=== PATIENT | male | born 1955 | race Hispanic/Latino ===

== ENCOUNTER 2020-12-26 20:32 | Inpatient (IN) | payer MEDICARE ==
[~2020-12-26] VITALS: Ht 188 cm; Wt 89.9 kg
[2020-12-26] MEDS ORDERED: ACETAMINOPHEN 500 MG TABLET ONE (22:28)
[2020-12-26] MEDS ORDERED: 0.9%NACL 1000ML 1,000 ML IV ONE ×2 (22:29→22:30)
[2020-12-26] MEDS ORDERED: ACETAMINOPHEN 500 MG TABLET PO ONE (22:30)
[2020-12-26 22:47] VITALS: BP 100/64
[2020-12-26] MEDS ORDERED: INSULIN HUMULIN R 100 UNIT/ML 3ML ONE (22:47)
[2020-12-26 22:48] LABS: BASOPHILS % (AUTO) 0.3 % (0.0-5.0); EOSINOPHILS % (AUTO) 0.1 % (0.0-8.0); HEMATOCRIT 41.1 % (42-54); LYMPHOCYTES % (AUTO) 11.2 % (21.0-51.0); MEAN CORPUSCULAR HEMOGLOBIN 29.2 pg (27.0-33.0); MEAN CORPUSCULAR HGB CONC 33.3 g/dL (32.0-36.0); MEAN CORPUSCULAR VOLUME 87.6 fL (79-99); MONOCYTES % (AUTO) 2.2 % (3.0-13.0); NEUTROPHILS % (AUTO) 83.7 % (40.0-77.0); RED BLOOD CELL COUNT(AUTO) 4.69 MIL/uL (4.50-6.20); WHITE BLOOD COUNT (AUTO) 6.8 K/uL (4.8-10.8)
[2020-12-26 22:52] LABS: PLATELET COUNT (AUTO) 31 K/uL (130-400)
[2020-12-26] MEDS ORDERED: INSULIN HUMULIN R 100 UNIT/ML 3ML SQ ONE (23:00)
[2020-12-26] MEDS ORDERED: CEFTRIAXONE 1G VIAL IVP ONE (23:00)
[2020-12-26] MEDS ORDERED: AZITHROMYCIN 250 MG TABLET PO ONE ×2 (23:00→23:56)
[2020-12-26 23:02] LABS: ALANINE AMINOTRANSFERASE 100 U/L (12-78); ALBUMIN 2.3 g/dL (3.5-5.0); ASPARTATE AMINOTRANSFERASE 257 U/L (10-37); BILIRUBIN,TOTAL 1.2 mg/dL (0.2-1.0); CARBON DIOXIDE 22 mmol/L (21-32); CREATININE 3.5 mg/dL (0.5-1.5); GLOMERULAR FILTR. RATE CALC 19 mL/min (>60); POTASSIUM 5.6 mmol/L (3.5-5.1); SODIUM SERUM 124 mmol/L (136-145); TOTAL PROTEIN, SERUM 7.7 g/dL (6.0-8.3); UREA NITROGEN, BLOOD 58 mg/dL (7-18)
[2020-12-26 23:07] LABS: CHLORIDE 87 mmol/L (101-111); GLUCOSE,RANDOM 464 mg/dL (70-105)
[2020-12-26 23:17] LABS: ABG BASE EXCESS -4.6 mmol/L (-2.0-3.0); ABG OXYGEN SATURATION 93.6 % (95.0-99.0); ABG PCO2 28 mmHg (35-48)
[2020-12-26 23:34] LABS: B-TYPE NATRIURETIC PEPTIDE 300 pg/mL (0-100)
[2020-12-26 23:42] LABS: AMMONIA < 3 umol/L (11-32)
[2020-12-26] MEDS ORDERED: CEFTRIAXONE 1G VIAL ONE (23:55)
[2020-12-27] VITALS (15 sets, daily range): BP systolic 75–110; BP diastolic 32–66
[2020-12-27] MEDS ORDERED: 0.9%NACL 1000ML 1,000 ML IV STA (02:25)
[2020-12-27] MEDS ORDERED: NOREPINEPHRINE 4MG/NS 250ML 250 ML IV SCH (03:30)
[2020-12-27] MEDS ORDERED: SODIUM BICARB 8.4% 50ML SYRINGE IVP STA (04:06)
[2020-12-27] MEDS ORDERED: IPRATROPIUM/ALBUTEROL SULFATE 3 ML SOLUTION IH PRN (06:00)
[2020-12-27] MEDS: 0.9%NACL 1000ML 1,000 ML IV SCH ×5 (06:00→20:16)
[2020-12-27] MEDS ORDERED: ACETAMINOPHEN 325 MG TAB PO PRN (06:30)
[2020-12-27] MEDS ORDERED: NITROGLYCERIN 0.4 MG SL TAB SL PRN (06:30)
[2020-12-27] MEDS ORDERED: LACTULOSE 20 GM/30 ML UDCUP PO PRN (06:30)
[2020-12-27] MEDS ORDERED: ONDANSETRON 4MG INJ IV PRN (06:30)
[2020-12-27] MEDS ORDERED: GUAIFENESIN-DM 200/20 MG 10 ML PO PRN (06:30)
[2020-12-27] MEDS ORDERED: MAG/ALUM/SIMETH 30 ML UDCUP PO PRN (06:30)
[2020-12-27 07:06] LABS: HEMATOCRIT 33.5 % (42-54); MEAN CORPUSCULAR HEMOGLOBIN 29.4 pg (27.0-33.0); MEAN CORPUSCULAR VOLUME 86.3 fL (79-99); PLATELET COUNT (AUTO) 32 K/uL (130-400); RED BLOOD CELL COUNT(AUTO) 3.88 MIL/uL (4.50-6.20); RED CELL DISTRIBUTION WIDTH 14.2 % (11.0-15.5); WHITE BLOOD COUNT (AUTO) 5.9 K/uL (4.8-10.8)
[2020-12-27 07:23] LABS: ALBUMIN 1.7 g/dL (3.5-5.0); BILIRUBIN,TOTAL 0.7 mg/dL (0.2-1.0); CREATININE 3.1 mg/dL (0.5-1.5); MAGNESIUM 2.3 mg/dL (1.80-2.40); PHOSPHORUS 3.5 mg/dL (2.5-4.9); POTASSIUM 4.1 mmol/L (3.5-5.1); TOTAL PROTEIN, SERUM 5.7 g/dL (6.0-8.3)
[2020-12-27 07:37] LABS: B-TYPE NATRIURETIC PEPTIDE 233 pg/mL (0-100)
[2020-12-27 07:40] LABS: LYMPHOCYTES % (MANUAL) 4 % (22-44); MAN.DIFF COMMENT-IMPRESSION MANUAL DIFFERENTIAL; MONOCYTES % (MANUAL) 1 % (2-9); PLATELET MORPHOLOGY COMMENT MARKED DECREASE; SEGMENTED NEUTROPHILS % 95 % (40-70)
[2020-12-27] MEDS: 0.9% NACL 250ML IVPB SCH (09:00)
[2020-12-27] MEDS ORDERED: ENOXAPARIN SODIUM 30 MG/0.3 ML SQ SCH (09:00)
[2020-12-27] MEDS ORDERED: MIDODRINE HCL 5 MG TABLET PO SCH (09:30)
[2020-12-27] MEDS ORDERED: 0.9%NACL 50ML 50 ML IV ONE ×2 (09:50→18:49)
[2020-12-27] MEDS: ZOSYN 3.375GM +NS 50ML IV SCH ×2 (10:04→18:46)
[2020-12-27] MEDS: AZITHROMYCIN 500MG+NS 250ML IV SCH (10:43)
[2020-12-27 12:59] LABS: INR 1.42 (0.85-1.15)
[2020-12-27 13:00] LABS: PARTIAL THROMBOPLASTIN TIME 53.3 SEC (26.3-35.5)
[2020-12-27] MEDS: INSULIN R PO SS1 SQ SCH ×3 (13:37→21:00)
[2020-12-27] MEDS: MIDODRINE HCL 5 MG TABLET PO SCH ×2 (13:41→20:06)
[2020-12-27] MEDS ORDERED: AMOX-429 PO (15:48)
[2020-12-27] MEDS ORDERED: ICOS1CAP PO (15:48)
[2020-12-27] MEDS ORDERED: ROSU20TA31 PO (15:48)
[2020-12-27] MEDS ORDERED: METO25TA6 PO (15:48)
[2020-12-27] MEDS ORDERED: ROPI1TAB13 PO (15:48)
[2020-12-27] MEDS ORDERED: PIOG45TA64 PO (15:48)
[2020-12-27] MEDS ORDERED: EMPA25TA PO (15:48)
[2020-12-27] MEDS ORDERED: METF-446 PO (15:48)
[2020-12-27] MEDS ORDERED: SACU1TAB PO (15:48)
[2020-12-27] MEDS ORDERED: GABA-529 PO (15:48)
[2020-12-27] MEDS ORDERED: MONT10TA32 PO (15:48)
[2020-12-27] MEDS ORDERED: SERT-439 PO (15:48)
[2020-12-27] MEDS ORDERED: LEVO100C4 PO (15:48)
[2020-12-27 19:16] LABS: ABG BASE EXCESS -2.8 mmol/L (-2.0-3.0); ABG HCO3 21.2 mmol/L (21.0-28.0); ABG OXYGEN SATURATION 94.4 % (95.0-99.0); ABG PCO2 35 mmHg (35-48)
[2020-12-27] MEDS: VASOPRESSIN 40 UNITS in 0.9%NACL 50ML 40 ML IV SCH (20:06)
[2020-12-27] MEDS ORDERED: SODIUM BICARB 8.4% 50ML SYRING 150 MEQ in DEXTROSE 5%-WATER 1,000 ML IVP STA (20:58)
[2020-12-27] MEDS ORDERED: VANCOMYCIN 1G VIAL IVPB SCH (22:00)
[2020-12-27] MEDS ORDERED: VANCOMYCIN PROTOCOL PER PHARMACY IV SCH (22:00)
[2020-12-27] MEDS ORDERED: VANCOMYCIN KIT 250 ML IV ONE (22:30)
[2020-12-28] VITALS (24 sets, daily range): BP systolic 80–117; BP diastolic 49–70
[2020-12-28] MEDS ORDERED: CEFTRIAXONE 1G VIAL IVP SCH
[2020-12-28] MEDS ORDERED: CEFTRIAXONE 1G VIAL ONE (00:12)
[2020-12-28] MEDS: CEFTRIAXONE 1G VIAL IVP SCH (00:30)
[2020-12-28] MEDS: ZOSYN 3.375GM +NS 50ML IV SCH ×3 (00:54→23:59)
[2020-12-28] MEDS ORDERED: 0.9%NACL 50ML 50 ML IV ONE ×2 (01:18→09:06)
[2020-12-28 04:43] LABS: APPEARANCE,URINE Turbid (CLEAR); BILIRUBIN,URINE Small (NEGATIVE); COLOR,URINE Dark Yellow (YELLOW); GLUCOSE, URINE (UA) >=1000 mg/dL (NEGATIVE); KETONES,URINE Trace mg/dL (NEGATIVE); LEUKOCYTE ESTERASE ,URINE Negative (NEGATIVE); NITRATE,URINE Negative (NEGATIVE); OCCULT BLOOD,URINE Nonhemolyzed Trace (NEGATIVE); PROTEIN,URINE POS 1+ mg/dL (NEGATIVE)
[2020-12-28 04:50] LABS: AMPHET/METH SCREEN,URINE NEGATIVE (NEGATIVE); BARBITURATE SCREEN, URINE NEGATIVE (NEGATIVE); BENZODIAZEPINES SCREEN,URINE NEGATIVE (NEGATIVE); CANNABINOID SCREEN,URINE NEGATIVE (NEGATIVE); COCAINE SCREEN,URINE NEGATIVE (NEGATIVE); CREATININE,URINE RANDOM 119 mg/dL (30-135); OPIATE SCREEN,URINE NEGATIVE (NEGATIVE); PHENCYCLIDINE SCREEN,URINE NEGATIVE (NEGATIVE); SODIUM,URINE RANDOM < 14 mmol/l (40-220)
[2020-12-28 04:51] LABS: AMORPHOUS SEDIMENT,UR Rare /LPF (None Seen); BACTERIA,URINE None Seen /HPF (None Seen); RBC,URINE 0-1 /HPF (0-1); SQUAMOUS EPITHELIAL CELL,UR Few /HPF (0-2); WBC,URINE None Seen /HPF (0-1)
[2020-12-28 06:05] LABS: ABG BASE EXCESS -2.5 mmol/L (-2.0-3.0); ABG HCO3 21.6 mmol/L (21.0-28.0); ABG OXYGEN SATURATION 94.7 % (95.0-99.0); ABG PCO2 36 mmHg (35-48)
[2020-12-28] MEDS ORDERED: [UNRECOGNIZED DRUG - REMARK] MISC SCH (07:00)
[2020-12-28 08:04] LABS: BASOPHILS % (AUTO) 1.5 % (0.0-5.0); HEMATOCRIT 33.6 % (42-54); LYMPHOCYTES % (AUTO) 18.3 % (21.0-51.0); MEAN CORPUSCULAR HEMOGLOBIN 29.6 pg (27.0-33.0); MEAN CORPUSCULAR HGB CONC 34.2 g/dL (32.0-36.0); MEAN CORPUSCULAR VOLUME 86.6 fL (79-99); MONOCYTES % (AUTO) 2.9 % (3.0-13.0); NEUTROPHILS % (AUTO) 73.7 % (40.0-77.0); RED BLOOD CELL COUNT(AUTO) 3.88 MIL/uL (4.50-6.20); RED CELL DISTRIBUTION WIDTH 14.3 % (11.0-15.5); WHITE BLOOD COUNT (AUTO) 6.2 K/uL (4.8-10.8)
[2020-12-28 08:06] LABS: RETICULOCYTE % (AUTO) 0.5 % (0.42-2.23)
[2020-12-28 08:15] LABS: PLATELET COUNT (AUTO) 25 K/uL (130-400)
[2020-12-28 08:21] LABS: PHOSPHORUS 3.1 mg/dL (2.5-4.9); POTASSIUM 4.4 mmol/L (3.5-5.1)
[2020-12-28 08:54] LABS: % IRON SATURATION 53.7 % (30-44)
[2020-12-28 08:56] LABS: THYROID STIMULATING HORMONE 1.1 uIU/mL (0.36-3.74)
[2020-12-28] MEDS: LEVOTHYROXINE 100 MCG TABLET PO SCH (09:12)
[2020-12-28] MEDS: GABAPENTIN 100 MG CAPSULE PO SCH ×3 (09:12→21:51)
[2020-12-28] MEDS: MIDODRINE HCL 5 MG TABLET PO SCH ×3 (09:12→21:51)
[2020-12-28] MEDS: MONTELUKAST SODIUM 10 MG TAB PO SCH (09:13)
[2020-12-28] MEDS: SERTRALINE HCL 50 MG TABLET PO SCH (09:14)
[2020-12-28] MEDS: 0.9%NACL 1000ML 1,000 ML IV SCH ×2 (09:14→23:07)
[2020-12-28] MEDS: INSULIN R PO SS1 SQ SCH ×4 (09:26→21:51)
[2020-12-28] MEDS: AZITHROMYCIN 500MG+NS 250ML IV SCH (12:16)
[2020-12-28] MEDS: 0.9% NACL 250ML IVPB SCH (12:16)
[2020-12-28] MEDS ORDERED: VANCOMYCIN 1.5GM/NS 250ML IV ONE ×2 (14:30)
[2020-12-28] MEDS: ROPINIROLE HCL 1 MG TABLET PO SCH (21:51)
[2020-12-28] MEDS: ATORVASTATIN 40 MG TABLET PO SCH (21:51)
[2020-12-29] VITALS (41 sets, daily range): BP systolic 82–126; BP diastolic 41–67
[2020-12-29] MEDS: CEFTRIAXONE 1G VIAL IVP SCH (00:20)
[2020-12-29] MEDS: ZOSYN 3.375GM +NS 50ML IV SCH ×3 (00:21→18:06)
[2020-12-29] MEDS: VASOPRESSIN 40 UNITS in 0.9%NACL 50ML 40 ML IV SCH (01:10)
[2020-12-29] MEDS: 0.9%NACL 100ML 100 ML IV SCH ×2 (04:40→21:15)
[2020-12-29] MEDS: LEVOTHYROXINE 100 MCG TABLET PO SCH (06:48)
[2020-12-29] MEDS: VANCOMYCIN 500MG+NS 100ML IVPB IV SCH ×2 (06:50→21:15)
[2020-12-29 07:25] LABS: HEMATOCRIT 29.5 % (42-54); MEAN CORPUSCULAR HEMOGLOBIN 29.6 pg (27.0-33.0); MEAN CORPUSCULAR HGB CONC 34.2 g/dL (32.0-36.0); MEAN CORPUSCULAR VOLUME 86.5 fL (79-99); PLATELET COUNT (AUTO) 41 K/uL (130-400); RED BLOOD CELL COUNT(AUTO) 3.41 MIL/uL (4.50-6.20); RED CELL DISTRIBUTION WIDTH 14.4 % (11.0-15.5); WHITE BLOOD COUNT (AUTO) 5.7 K/uL (4.8-10.8)
[2020-12-29] MEDS: INSULIN R PO SS1 SQ SCH ×4 (07:30→21:35)
[2020-12-29 07:46] LABS: CREATININE 1.6 mg/dL (0.5-1.5); POTASSIUM 3.5 mmol/L (3.5-5.1)
[2020-12-29] MEDS ORDERED: 0.9%NACL 50ML 50 ML IV ONE (08:56)
[2020-12-29 09:00] LABS: EOSINOPHILS % (MANUAL) 2 % (1-6); LYMPHOCYTES % (MANUAL) 5 % (22-44); MAN.DIFF COMMENT-IMPRESSION MANUAL DIFFERENTIAL; MONOCYTES % (MANUAL) 5 % (2-9); PLATELET MORPHOLOGY COMMENT MARKED DECREASE; SEGMENTED NEUTROPHILS % 88 % (40-70)
[2020-12-29] MEDS: 0.9% NACL 250ML IVPB SCH (09:00)
[2020-12-29] MEDS: MIDODRINE HCL 5 MG TABLET PO SCH ×3 (09:05→21:15)
[2020-12-29] MEDS: SERTRALINE HCL 50 MG TABLET PO SCH (09:05)
[2020-12-29] MEDS: MONTELUKAST SODIUM 10 MG TAB PO SCH (09:05)
[2020-12-29] MEDS: GABAPENTIN 100 MG CAPSULE PO SCH ×3 (09:05→21:15)
[2020-12-29] MEDS ORDERED: ALBUMIN (HUMAN) 25% 100 ML IV PRN (10:00)
[2020-12-29] MEDS ORDERED: FUROSEMIDE 20MG VIAL IV SCH (10:00)
[2020-12-29] MEDS: ROPINIROLE HCL 1 MG TABLET PO SCH (21:14)
[2020-12-29] MEDS: SPIRONOLACTONE 25 MG TAB PO SCH (21:15)
[2020-12-29] MEDS: ATORVASTATIN 40 MG TABLET PO SCH (21:15)
[2020-12-30] VITALS (44 sets, daily range): BP systolic 77–111; BP diastolic 39–65
[2020-12-30] MEDS: ZOSYN 3.375GM +NS 50ML IV SCH ×3 (00:04→17:16)
[2020-12-30 06:01] LABS: BASOPHILS % (AUTO) 0.6 % (0.0-5.0); EOSINOPHILS % (AUTO) 0.4 % (0.0-8.0); HEMATOCRIT 29.1 % (42-54); LYMPHOCYTES % (AUTO) 28.3 % (21.0-51.0); MEAN CORPUSCULAR HEMOGLOBIN 29.3 pg (27.0-33.0); MEAN CORPUSCULAR HGB CONC 34.4 g/dL (32.0-36.0); MEAN CORPUSCULAR VOLUME 85.3 fL (79-99); MONOCYTES % (AUTO) 3.4 % (3.0-13.0); PLATELET COUNT (AUTO) 44 K/uL (130-400); RED BLOOD CELL COUNT(AUTO) 3.41 MIL/uL (4.50-6.20); RED CELL DISTRIBUTION WIDTH 14.2 % (11.0-15.5); WHITE BLOOD COUNT (AUTO) 5.3 K/uL (4.8-10.8)
[2020-12-30 06:28] LABS: CREATININE 1.6 mg/dL (0.5-1.5); PHOSPHORUS 3.1 mg/dL (2.5-4.9); POTASSIUM 3.3 mmol/L (3.5-5.1)
[2020-12-30] MEDS: INSULIN R PO SS1 SQ SCH ×4 (06:35→21:26)
[2020-12-30] MEDS: 0.9%NACL 100ML 100 ML IV SCH (06:41)
[2020-12-30] MEDS: VANCOMYCIN 500MG+NS 100ML IVPB IV SCH ×2 (06:41→17:24)
[2020-12-30] MEDS: LEVOTHYROXINE 100 MCG TABLET PO SCH (06:42)
[2020-12-30] MEDS: MONTELUKAST SODIUM 10 MG TAB PO SCH (08:06)
[2020-12-30] MEDS: SPIRONOLACTONE 25 MG TAB PO SCH ×2 (08:06→21:22)
[2020-12-30] MEDS: SERTRALINE HCL 50 MG TABLET PO SCH (08:06)
[2020-12-30] MEDS: MIDODRINE HCL 5 MG TABLET PO SCH ×3 (08:06→21:22)
[2020-12-30] MEDS: GABAPENTIN 100 MG CAPSULE PO SCH ×3 (08:06→21:22)
[2020-12-30 08:08] LABS: ABG BASE EXCESS 0.7 mmol/L (-2.0-3.0); ABG HCO3 24.5 mmol/L (21.0-28.0); ABG OXYGEN SATURATION 95.8 % (95.0-99.0); ABG PCO2 37 mmHg (35-48)
[2020-12-30] MEDS: 0.9% NACL 250ML IVPB SCH (08:23)
[2020-12-30] MEDS ORDERED: POTASSIUM CHLORIDE 10% ELIXIR 20 MEQ/15 ML UDCUP ONE (11:10)
[2020-12-30] MEDS ORDERED: LIDOCAINE HCL-MPF 1% 2ML VIAL IV PRN (11:30)
[2020-12-30] MEDS ORDERED: POTASSIUM CHLORIDE 20MEQ/100ML 100 ML IV PRN (11:30)
[2020-12-30] MEDS: POTASSIUM CHLORIDE 10% ELIXIR 20 MEQ/15 ML UDCUP PO PRN ×2 (14:31→17:23)
[2020-12-30] MEDS: CEFEPIME HCL 1 GM VIAL IVP SCH (21:21)
[2020-12-30] MEDS: ROPINIROLE HCL 1 MG TABLET PO SCH (21:22)
[2020-12-30] MEDS: ATORVASTATIN 40 MG TABLET PO SCH (21:22)
[2020-12-31] VITALS (27 sets, daily range): BP systolic 83–123; BP diastolic 37–78
[2020-12-31] MEDS: INSULIN R PO SS1 SQ SCH ×4 (04:54→20:51)
[2020-12-31 05:10] LABS: HEMATOCRIT 31.3 % (42-54); MEAN CORPUSCULAR HGB CONC 33.2 g/dL (32.0-36.0); MEAN CORPUSCULAR VOLUME 87.2 fL (79-99); RED BLOOD CELL COUNT(AUTO) 3.59 MIL/uL (4.50-6.20); RED CELL DISTRIBUTION WIDTH 14.6 % (11.0-15.5)
[2020-12-31] MEDS: VANCOMYCIN 500MG+NS 100ML IVPB IV SCH ×2 (05:24→18:51)
[2020-12-31] MEDS: 0.9%NACL 100ML 100 ML IV SCH (05:24)
[2020-12-31 05:30] LABS: CREATININE 1.5 mg/dL (0.5-1.5); MAGNESIUM 2.1 mg/dL (1.80-2.40); POTASSIUM 3.5 mmol/L (3.5-5.1)
[2020-12-31] MEDS: LEVOTHYROXINE 100 MCG TABLET PO SCH (06:13)
[2020-12-31] MEDS: 0.9% NACL 250ML IVPB SCH (08:21)
[2020-12-31] MEDS: SPIRONOLACTONE 25 MG TAB PO SCH (08:21)
[2020-12-31] MEDS: CEFEPIME HCL 1 GM VIAL IVP SCH ×2 (08:21→20:34)
[2020-12-31] MEDS: SERTRALINE HCL 50 MG TABLET PO SCH (08:22)
[2020-12-31] MEDS: MONTELUKAST SODIUM 10 MG TAB PO SCH (08:22)
[2020-12-31] MEDS: GABAPENTIN 100 MG CAPSULE PO SCH ×3 (10:48→20:35)
[2020-12-31] MEDS: MIDODRINE HCL 5 MG TABLET PO SCH ×3 (10:48→20:34)
[2020-12-31] MEDS: LEVOFLOXACIN 750 MG TABLET PO SCH (10:48)
[2020-12-31] MEDS: HYDROCORTISONE SOD SUCCINATE 100 MG/2 ML VIAL IV SCH ×3 (10:56→20:36)
[2020-12-31] MEDS: ACETAMINOPHEN 325 MG TAB PO PRN ×2 (10:57→12:08)
[2020-12-31] MEDS: ATORVASTATIN 40 MG TABLET PO SCH (20:34)
[2020-12-31] MEDS: ROPINIROLE HCL 1 MG TABLET PO SCH (20:35)
[2020-12-31] MEDS: BALSAM PERU/CASTOR OIL 60 GM TUBE TP SCH (21:18)
[2021-01-01] VITALS (16 sets, daily range): BP systolic 99–122; BP diastolic 55–71
[2021-01-01 04:03] LABS: HEMATOCRIT 28.3 % (42-54); MEAN CORPUSCULAR HEMOGLOBIN 29.3 pg (27.0-33.0); MEAN CORPUSCULAR HGB CONC 32.9 g/dL (32.0-36.0); MEAN CORPUSCULAR VOLUME 89.3 fL (79-99); RED BLOOD CELL COUNT(AUTO) 3.17 MIL/uL (4.50-6.20); RED CELL DISTRIBUTION WIDTH 15.1 % (11.0-15.5); WHITE BLOOD COUNT (AUTO) 5.4 K/uL (4.8-10.8)
[2021-01-01 04:15] LABS: CREATININE 1.5 mg/dL (0.5-1.5); POTASSIUM 4.6 mmol/L (3.5-5.1)
[2021-01-01] MEDS: VANCOMYCIN 500MG+NS 100ML IVPB IV SCH ×2 (05:52→17:23)
[2021-01-01] MEDS: 0.9%NACL 100ML 100 ML IV SCH (05:53)
[2021-01-01] MEDS: LEVOTHYROXINE 100 MCG TABLET PO SCH (06:19)
[2021-01-01] MEDS: INSULIN R PO SS1 SQ SCH ×4 (06:32→21:38)
[2021-01-01] MEDS: LEVOFLOXACIN 750 MG TABLET PO SCH (08:39)
[2021-01-01] MEDS: GABAPENTIN 100 MG CAPSULE PO SCH ×3 (08:39→21:35)
[2021-01-01] MEDS: SERTRALINE HCL 50 MG TABLET PO SCH (08:39)
[2021-01-01] MEDS: CEFEPIME HCL 1 GM VIAL IVP SCH (08:39)
[2021-01-01] MEDS: MIDODRINE HCL 5 MG TABLET PO SCH ×3 (08:39→21:35)
[2021-01-01] MEDS: MONTELUKAST SODIUM 10 MG TAB PO SCH (08:39)
[2021-01-01] MEDS: BALSAM PERU/CASTOR OIL 60 GM TUBE TP SCH ×2 (08:40→21:38)
[2021-01-01] MEDS: HYDROCORTISONE SOD SUCCINATE 100 MG/2 ML VIAL IV SCH ×3 (08:40→21:35)
[2021-01-01] MEDS: 0.9% NACL 250ML IVPB SCH (09:00)
[2021-01-01] MEDS: ATORVASTATIN 40 MG TABLET PO SCH (21:35)
[2021-01-01] MEDS: ROPINIROLE HCL 1 MG TABLET PO SCH (21:35)
[2021-01-02 00:21] VITALS: BP 123/76
[2021-01-02 03:52] VITALS: BP 113/69
[2021-01-02] MEDS: LEVOTHYROXINE 100 MCG TABLET PO SCH (05:20)
[2021-01-02 05:35] LABS: BASOPHILS % (AUTO) 0.2 % (0.0-5.0); HEMATOCRIT 27.6 % (42-54); LYMPHOCYTES % (AUTO) 24.8 % (21.0-51.0); MEAN CORPUSCULAR HEMOGLOBIN 28.9 pg (27.0-33.0); MEAN CORPUSCULAR VOLUME 87.6 fL (79-99); MONOCYTES % (AUTO) 5.2 % (3.0-13.0); NEUTROPHILS % (AUTO) 69.2 % (40.0-77.0); PLATELET COUNT (AUTO) 68 K/uL (130-400); RED BLOOD CELL COUNT(AUTO) 3.15 MIL/uL (4.50-6.20); RED CELL DISTRIBUTION WIDTH 14.8 % (11.0-15.5); WHITE BLOOD COUNT (AUTO) 5.2 K/uL (4.8-10.8)
[2021-01-02 05:57] LABS: CREATININE 1.4 mg/dL (0.5-1.5); PHOSPHORUS 3.6 mg/dL (2.5-4.9); POTASSIUM 3.7 mmol/L (3.5-5.1)
[2021-01-02] MEDS: INSULIN R PO SS1 SQ SCH ×4 (06:40→20:37)
[2021-01-02 07:30] VITALS: BP 121/72
[2021-01-02] MEDS: LEVOFLOXACIN 750 MG TABLET PO SCH (08:59)
[2021-01-02] MEDS: MONTELUKAST SODIUM 10 MG TAB PO SCH (08:59)
[2021-01-02] MEDS: MIDODRINE HCL 5 MG TABLET PO SCH ×3 (08:59→19:31)
[2021-01-02] MEDS: HYDROCORTISONE SOD SUCCINATE 100 MG/2 ML VIAL IV SCH (08:59)
[2021-01-02] MEDS: SERTRALINE HCL 50 MG TABLET PO SCH (08:59)
[2021-01-02] MEDS: 0.9% NACL 250ML IVPB SCH (09:00)
[2021-01-02] MEDS: BALSAM PERU/CASTOR OIL 60 GM TUBE TP SCH ×2 (09:00→19:36)
[2021-01-02] MEDS: GABAPENTIN 100 MG CAPSULE PO SCH ×3 (09:00→19:32)
[2021-01-02] MEDS ORDERED: VANCOMYCIN 500MG+NS 100ML IVPB IV SCH (09:00)
[2021-01-02 11:00] VITALS: BP 120/69
[2021-01-02] MEDS: VANCOMYCIN 750MG VIAL IVPB SCH ×2 (11:55→19:31)
[2021-01-02] MEDS: 0.9% NACL 250ML 250 ML IV SCH ×2 (11:56→19:31)
[2021-01-02 16:00] VITALS: BP 128/75
[2021-01-02] MEDS: ROPINIROLE HCL 1 MG TABLET PO SCH (19:31)
[2021-01-02] MEDS: ATORVASTATIN 40 MG TABLET PO SCH (19:32)
[2021-01-02 20:00] VITALS: BP 126/73
[2021-01-03] VITALS (7 sets, daily range): BP systolic 113–130; BP diastolic 59–76
[2021-01-03] MEDS: INSULIN R PO SS1 SQ SCH ×4 (05:40→21:03)
[2021-01-03] MEDS: LEVOTHYROXINE 100 MCG TABLET PO SCH (05:41)
[2021-01-03] MEDS: 0.9% NACL 250ML IVPB SCH (09:00)
[2021-01-03] MEDS: MIDODRINE HCL 5 MG TABLET PO SCH ×3 (10:35→21:01)
[2021-01-03] MEDS: GABAPENTIN 100 MG CAPSULE PO SCH ×3 (10:35→21:00)
[2021-01-03] MEDS: MONTELUKAST SODIUM 10 MG TAB PO SCH (10:35)
[2021-01-03] MEDS: SERTRALINE HCL 50 MG TABLET PO SCH (10:35)
[2021-01-03] MEDS: VANCOMYCIN 750MG VIAL IVPB SCH ×2 (10:36→22:59)
[2021-01-03] MEDS: LEVOFLOXACIN 750 MG TABLET PO SCH (10:36)
[2021-01-03] MEDS: 0.9% NACL 250ML 250 ML IV SCH ×2 (10:36→22:59)
[2021-01-03] MEDS ORDERED: LEVO750T46 PO (14:17)
[2021-01-03] MEDS ORDERED: Midodrine Hcl PO (14:17)
[2021-01-03] MEDS ORDERED: DOXY150T15 PO (14:17)
[2021-01-03] MEDS: BALSAM PERU/CASTOR OIL 60 GM TUBE TP SCH ×2 (16:02→21:00)
[2021-01-03] MEDS: ATORVASTATIN 40 MG TABLET PO SCH (21:01)
[2021-01-03] MEDS: ROPINIROLE HCL 1 MG TABLET PO SCH (21:01)
[2021-01-04 04:12] VITALS: BP 130/64
[2021-01-04] MEDS: LEVOTHYROXINE 100 MCG TABLET PO SCH (06:37)
[2021-01-04] MEDS: INSULIN R PO SS1 SQ SCH ×4 (07:15→21:37)
[2021-01-04 07:30] VITALS: BP 125/67
[2021-01-04] MEDS: 0.9% NACL 250ML IVPB SCH (09:00)
[2021-01-04] MEDS ORDERED: COMPOUND IV REFRIGERATED 1 EACH IVSOLN MISC PRN (09:00)
[2021-01-04] MEDS: SERTRALINE HCL 50 MG TABLET PO SCH (09:54)
[2021-01-04] MEDS: VANCOMYCIN 1.25GM/NS 250ML IVPB SCH ×4 (09:54→21:35)
[2021-01-04] MEDS: MONTELUKAST SODIUM 10 MG TAB PO SCH (09:54)
[2021-01-04] MEDS: GABAPENTIN 100 MG CAPSULE PO SCH ×3 (09:54→21:35)
[2021-01-04] MEDS: MIDODRINE HCL 5 MG TABLET PO SCH ×3 (09:54→21:35)
[2021-01-04] MEDS: LEVOFLOXACIN 750 MG TABLET PO SCH (09:54)
[2021-01-04] MEDS: BALSAM PERU/CASTOR OIL 60 GM TUBE TP SCH ×2 (09:55→21:46)
[2021-01-04 11:00] VITALS: BP 117/64
[2021-01-04 16:00] VITALS: BP 128/74
[2021-01-04 20:00] VITALS: BP 129/61
[2021-01-04] MEDS: ROPINIROLE HCL 1 MG TABLET PO SCH (21:35)
[2021-01-04] MEDS: ATORVASTATIN 40 MG TABLET PO SCH (21:36)
[2021-01-05 00:03] VITALS: BP 139/76
[2021-01-05 03:57] VITALS: BP 135/68
[2021-01-05] MEDS: LEVOTHYROXINE 100 MCG TABLET PO SCH (05:44)
[2021-01-05] MEDS: INSULIN R PO SS1 SQ SCH ×4 (06:44→22:18)
[2021-01-05 07:55] VITALS: BP 124/68
[2021-01-05] MEDS: 0.9% NACL 250ML IVPB SCH (09:00)
[2021-01-05] MEDS: BALSAM PERU/CASTOR OIL 60 GM TUBE TP SCH ×2 (09:00→22:23)
[2021-01-05] MEDS: GABAPENTIN 100 MG CAPSULE PO SCH ×3 (10:32→22:16)
[2021-01-05] MEDS: LEVOFLOXACIN 750 MG TABLET PO SCH (10:32)
[2021-01-05] MEDS: SERTRALINE HCL 50 MG TABLET PO SCH (10:33)
[2021-01-05] MEDS: MONTELUKAST SODIUM 10 MG TAB PO SCH (10:33)
[2021-01-05] MEDS: MIDODRINE HCL 5 MG TABLET PO SCH ×3 (10:33→22:16)
[2021-01-05 11:54] VITALS: BP 128/62
[2021-01-05] MEDS ORDERED: METFORMIN HCL 500 MG TAB.SR.24H PO SCH (12:00)
[2021-01-05 15:55] VITALS: BP 136/75
[2021-01-05] MEDS: METFORMIN HCL 500 MG TAB.SR.24H PO SCH (17:06)
[2021-01-05 20:00] VITALS: BP 127/72
[2021-01-05] MEDS: ROPINIROLE HCL 1 MG TABLET PO SCH (22:16)
[2021-01-05] MEDS: ATORVASTATIN 40 MG TABLET PO SCH (22:16)
[2021-01-05] MEDS: VANCOMYCIN KIT 250 ML IV SCH (22:17)
[2021-01-06 00:13] VITALS: BP 139/71
[2021-01-06 04:00] VITALS: BP 126/74
[2021-01-06 05:35] LABS: BASOPHILS % (AUTO) 0.2 % (0.0-5.0); EOSINOPHILS % (AUTO) 0.6 % (0.0-8.0); HEMATOCRIT 31.2 % (42-54); LYMPHOCYTES % (AUTO) 32.9 % (21.0-51.0); MEAN CORPUSCULAR HEMOGLOBIN 28.8 pg (27.0-33.0); MEAN CORPUSCULAR HGB CONC 31.7 g/dL (32.0-36.0); MEAN CORPUSCULAR VOLUME 90.7 fL (79-99); MONOCYTES % (AUTO) 6.7 % (3.0-13.0); PLATELET COUNT (AUTO) 104 K/uL (130-400); RED BLOOD CELL COUNT(AUTO) 3.44 MIL/uL (4.50-6.20); RED CELL DISTRIBUTION WIDTH 14.6 % (11.0-15.5); WHITE BLOOD COUNT (AUTO) 4.6 K/uL (4.8-10.8)
[2021-01-06 06:00] LABS: CREATININE 1.3 mg/dL (0.5-1.5); PHOSPHORUS 4.2 mg/dL (2.5-4.9); POTASSIUM 3.1 mmol/L (3.5-5.1)
[2021-01-06] MEDS: LEVOTHYROXINE 100 MCG TABLET PO SCH (06:13)
[2021-01-06] MEDS: INSULIN R PO SS1 SQ SCH ×3 (06:14→20:31)
[2021-01-06 08:00] VITALS: BP 125/69
[2021-01-06] MEDS: METFORMIN HCL 500 MG TAB.SR.24H PO SCH ×2 (08:00→18:02)
[2021-01-06] MEDS: 0.9% NACL 250ML IVPB SCH (09:00)
[2021-01-06] MEDS: BALSAM PERU/CASTOR OIL 60 GM TUBE TP SCH ×2 (09:00→19:58)
[2021-01-06] MEDS: VANCOMYCIN KIT 250 ML IV SCH ×3 (09:00→21:00)
[2021-01-06] MEDS: LEVOFLOXACIN 750 MG TABLET PO SCH (11:01)
[2021-01-06] MEDS: GABAPENTIN 100 MG CAPSULE PO SCH ×3 (11:02→19:58)
[2021-01-06] MEDS: MIDODRINE HCL 5 MG TABLET PO SCH ×3 (11:02→19:58)
[2021-01-06] MEDS: SERTRALINE HCL 50 MG TABLET PO SCH (11:02)
[2021-01-06] MEDS: MONTELUKAST SODIUM 10 MG TAB PO SCH (11:03)
[2021-01-06 11:47] VITALS: BP 123/61
[2021-01-06 16:00] VITALS: BP 130/68
[2021-01-06] MEDS: ROPINIROLE HCL 1 MG TABLET PO SCH (19:58)
[2021-01-06] MEDS: ATORVASTATIN 40 MG TABLET PO SCH (19:58)
[2021-01-06 20:00] VITALS: BP 126/81
[2021-01-07] VITALS: BP 123/63
[2021-01-07 04:00] VITALS: BP 120/66
[2021-01-07] MEDS: LEVOTHYROXINE 100 MCG TABLET PO SCH (04:48)
[2021-01-07] MEDS: INSULIN R PO SS1 SQ SCH ×4 (06:07→20:24)
[2021-01-07 08:00] VITALS: BP 127/68
[2021-01-07] MEDS: SERTRALINE HCL 50 MG TABLET PO SCH (08:17)
[2021-01-07] MEDS: MONTELUKAST SODIUM 10 MG TAB PO SCH (08:17)
[2021-01-07] MEDS: LEVOFLOXACIN 750 MG TABLET PO SCH (08:17)
[2021-01-07] MEDS: METFORMIN HCL 500 MG TAB.SR.24H PO SCH ×2 (08:18→16:40)
[2021-01-07] MEDS: KCL 20 MEQ ERTAB PO PRN ×2 (08:18→16:40)
[2021-01-07] MEDS: BALSAM PERU/CASTOR OIL 60 GM TUBE TP SCH ×2 (08:18→19:39)
[2021-01-07] MEDS: HONEY 1 APPL/ML TUBE TP SCH (08:18)
[2021-01-07] MEDS: MIDODRINE HCL 5 MG TABLET PO SCH ×3 (08:18→19:38)
[2021-01-07] MEDS: GABAPENTIN 100 MG CAPSULE PO SCH ×3 (08:18→19:38)
[2021-01-07] MEDS: 0.9% NACL 250ML IVPB SCH (10:53)
[2021-01-07] MEDS: VANCOMYCIN KIT 250 ML IV SCH ×2 (10:53→19:39)
[2021-01-07 12:00] VITALS: BP 102/61
[2021-01-07 16:00] VITALS: BP 111/59
[2021-01-07] MEDS: ROPINIROLE HCL 1 MG TABLET PO SCH (19:38)
[2021-01-07] MEDS: ATORVASTATIN 40 MG TABLET PO SCH (19:38)
[2021-01-07 20:00] VITALS: BP 117/60
[2021-01-08] VITALS: BP 134/74
[2021-01-08 04:00] VITALS: BP 136/74
[2021-01-08] MEDS: LEVOTHYROXINE 100 MCG TABLET PO SCH (05:26)
[2021-01-08] MEDS: INSULIN R PO SS1 SQ SCH ×3 (05:53→17:55)
[2021-01-08 08:00] VITALS: BP 127/70
[2021-01-08] MEDS: METFORMIN HCL 500 MG TAB.SR.24H PO SCH ×2 (08:43→17:49)
[2021-01-08] MEDS: LEVOFLOXACIN 750 MG TABLET PO SCH (10:52)
[2021-01-08] MEDS: 0.9% NACL 250ML IVPB SCH (10:52)
[2021-01-08] MEDS: VANCOMYCIN KIT 250 ML IV SCH (10:52)
[2021-01-08] MEDS: SERTRALINE HCL 50 MG TABLET PO SCH (10:53)
[2021-01-08] MEDS: GABAPENTIN 100 MG CAPSULE PO SCH ×2 (10:53→14:15)
[2021-01-08] MEDS: MONTELUKAST SODIUM 10 MG TAB PO SCH (10:53)
[2021-01-08] MEDS: MIDODRINE HCL 5 MG TABLET PO SCH ×2 (11:00→14:16)
[2021-01-08] MEDS: BALSAM PERU/CASTOR OIL 60 GM TUBE TP SCH (11:01)
[2021-01-08 12:00] VITALS: BP 114/61
[2021-01-08 16:00] VITALS: BP 127/70
[2021-01-08] MEDS: HONEY 1 APPL/ML TUBE TP SCH (17:49)
== END 2021-01-08 19:50 | disposition home health service (06) | DRG 853 ==
LOC: EDH 20:32 → EDHIP 12-27 → 2CH 12-29 15:57 → 3BH 01-01 10:37
PROVIDERS: ADMIT Internal Medicine Nephrology; ATTEND Internal Medicine Nephrology
PROC: 0JBR0ZZ Excision of Left Foot Subcutaneous Tissue and Fascia, Open Approach (ICD-10-PCS; principal; 2020-12-27)
PROC: 30233R1 Transfusion of Nonautologous Platelets into Peripheral Vein, Percutaneous Approach (ICD-10-PCS; 2020-12-28)
PROC: 02HV33Z Insertion of Infusion Device into Superior Vena Cava, Percutaneous Approach (ICD-10-PCS; 2020-12-28)
DX: A41.9 Sepsis, unspecified organism (principal); R65.21 Severe sepsis with septic shock; J18.9 Pneumonia, unspecified organism; I42.9 Cardiomyopathy, unspecified; A04.9 Bacterial intestinal infection, unspecified; N17.9 Acute kidney failure, unspecified; L03.90 Cellulitis, unspecified; E87.1 Hypo-osmolality and hyponatremia; I50.22 Chronic systolic (congestive) heart failure; L02.612 Cutaneous abscess of left foot; M86.8X7 Other osteomyelitis, ankle and foot; I13.0 Hypertensive heart and chronic kidney disease with heart failure and stage 1 through stage 4 chronic kidney disease, or unspecified chronic kidney disease; D69.6 Thrombocytopenia, unspecified; E11.22 Type 2 diabetes mellitus with diabetic chronic kidney disease; B95.62 Methicillin resistant Staphylococcus aureus infection as the cause of diseases classified elsewhere; E86.9 Volume depletion, unspecified; E78.5 Hyperlipidemia, unspecified; E11.65 Type 2 diabetes mellitus with hyperglycemia; E11.621 Type 2 diabetes mellitus with foot ulcer; L97.529 Non-pressure chronic ulcer of other part of left foot with unspecified severity; L89.309 Pressure ulcer of unspecified buttock, unspecified stage; D64.9 Anemia, unspecified; E03.9 Hypothyroidism, unspecified; E11.40 Type 2 diabetes mellitus with diabetic neuropathy, unspecified; E11.51 Type 2 diabetes mellitus with diabetic peripheral angiopathy without gangrene; E11.69 Type 2 diabetes mellitus with other specified complication; N18.9 Chronic kidney disease, unspecified; E66.9 Obesity, unspecified; I25.10 Atherosclerotic heart disease of native coronary artery without angina pectoris; Z20.822 Contact with and (suspected) exposure to COVID-19; Z68.25 Body mass index [BMI] 25.0-25.9, adult; I25.2 Old myocardial infarction; Z75.1 Person awaiting admission to adequate facility elsewhere; Z95.0 Presence of cardiac pacemaker; Z91.19 Patient's noncompliance with other medical treatment and regimen; Z83.3 Family history of diabetes mellitus; Z82.49 Family history of ischemic heart disease and other diseases of the circulatory system
CPT/HCPCS: 36415; 36600; 71045; 71250; 73521; 73630; 74176; 76705; 80048; 80053; 80202; 80305; 81001; 82140; 82533; 82570; 82607; 82728; 82803; 82948; 83605; 83630; 83690; 83735; 83880; 84100; 84300; 84443; 84484; 85025; 85027; 85610; 85730; 86140; 86850; 86900; 86901; 87040; 87046; 87070; 87077; 87186; 87324; 87426; 87804; 87880; 93005; 93306; 93356; 93925; 97039; A6250; C1751; C1894; G0378; J0456; J0692; J0696; J1650; J1720; J1815; J1940; J2543; J3370; J3480; J3490; J7030; J7050; J7070; P9034